=== PATIENT | male | born 1960 | race Asian ===

== ENCOUNTER 2017-04-09 07:25 | Outpatient (CLI) | payer BC ==
[2017-04-09] VITALS (15 sets, daily range): BP systolic 137–181; BP diastolic 79–100; PULSE 73–92
[~2017-04-09] VITALS: Ht 188 cm; Wt 82.0 kg
[~2017-04-09 07:25] MED LIST: FISH OIL CONC1000 MG PO; LOPRESSOR 225 MG/TAB PO; LORTAB 5/500 501 TAB PO; OXYCONTIN10 MG PO; VERAPAMIL; VERAPAMIL HCL80 MG PO; VITAMIN C500 MG PO
[2017-04-09] MEDS ORDERED: DAZIDOX10 MG PO (07:51)
[2017-04-09] MEDS ORDERED: GLUCOPHAGE1000 MG PO (07:56)
[2017-04-09] MEDS ORDERED: AMBIEN 10MG10 MG PO (07:57)
== END 2017-04-09 11:38 | disposition home or self-care (01) ==
LOC: COL.RAD 07:25
DX: R91.8 Other nonspecific abnormal finding of lung field (principal); R59.0 Localized enlarged lymph nodes; Z87.891 Personal history of nicotine dependence
CPT/HCPCS: J2250

== ENCOUNTER → 2017-09-14 | Outpatient (CLI) | payer BC ==
[~2017-09-14] MED LIST changes: +AMBIEN 10MG10 MG PO; +DAZIDOX10 MG PO; +GLUCOPHAGE1000 MG PO
== END ==
LOC: COL.RAD 08:05
DX: C34.91 Malignant neoplasm of unspecified part of right bronchus or lung (principal)

== ENCOUNTER → 2017-10-26 | Outpatient (CLI) | payer BC | LOC: COL.RAD 11:45 | DX: C34.31 Malignant neoplasm of lower lobe, right bronchus or lung (principal); C77.1 Secondary and unspecified malignant neoplasm of intrathoracic lymph nodes; C79.51 Secondary malignant neoplasm of bone ==

== ENCOUNTER 2017-11-25 09:58 | Inpatient (IN) | payer BC ==
[2017-11-25] VITALS (213 sets, daily range): BP systolic 92–110; BP diastolic 72–85; PULSE 90–112; TEMP 97–97.3; O2SAT 78–100
[~2017-11-25] VITALS: Ht 185.4 cm; Wt 80.2 kg
[2017-11-25 10:24] LABS: INR 1.8 (0.8-3.0); PROTHROMBIN TIME 20.1 SECONDS (9.7-12.8)
[2017-11-25 10:25] LABS: ALANINE AMINOTRANSFERASE 33 U/L (21-72); ALBUMIN 3.2 gm/dL (3.5-5.0); ALKALINE PHOSPHATASE 95 U/L (50-136); ANION GAP 14 mmol/L (7-16); AST,SGOT 36 U/L (15-37); BILIRUBIN,TOTAL 0.4 mg/dL (0.0-1.0); BLOOD UREA NITROGEN 20 mg/dL (9-20); CALCIUM 8.6 mg/dL (8.4-10.2); CARBON DIOXIDE 25 mmol/L (22-30); CHLORIDE 100 mmol/L (98-107); CREATININE, serum 0.71 mg/dL (0.66-1.25); GLUCOSE 212 mg/dL (74-106); LIPASE 29 U/L (23-300); POTASSIUM 4.3 mmol/L (3.4-5.0); SODIUM 140 mmol/L (137-145); TOTAL PROTEIN 6.8 gm/dL (6.4-8.2)
[2017-11-25 10:26] LABS: PARTIAL THROMBOPLASTIN TIME 35.6 SECONDS (26.0-37.0)
[2017-11-25 10:28] LABS: BASO % 0.3 % (0.0-2.0); EOS # 0.1 (0.0-0.7); EOS % 0.6 % (0-4.0); GRAN % 77.9 % (42.2-75.2); HEMOGLOBIN 10.5 g/dl (13.5-18.0); LYMPH # 1.2 (1.2-3.4); LYMPH % 11.2 % (20.0-51.0); MEAN CELL VOLUME 89 fl (80.0-100.0); MEAN CORPUSCULAR HEMOGLOBIN 28 pg (27.0-31.0); MEAN CORPUSCULAR HGB CONC 31 g/dl (33.0-37.0); MEAN PLATELET VOLUME 9.9 fl (7.4-10.4); MONO % 9.3 % (1.7-9.3); PLATELET COUNT 145 K/mm3 (130-400); RED BLOOD COUNT 3.76 M/mm3 (4.20-5.60); REDCELL DISTRIBUTION WIDTH-CV 19.8 % (11.5-14.5)
[2017-11-25 10:33] LABS: HEMATOCRIT 33.6 % (42.0-52.0)
[2017-11-25 10:39] LABS: TROPONIN-I 0.119 ng/mL (0.000-0.034)
[2017-11-25] MEDS ORDERED: FARXIGA10 PO (11:09)
[2017-11-25] MEDS ORDERED: ATIVAN 1MG T1 MG/TAB PO (11:10)
[2017-11-25] MEDS ORDERED: DOLOPHINE HCL5 MG PO (11:10)
[2017-11-25] MEDS ORDERED: MOVANTIK25 MG PO (11:10)
[2017-11-25] MEDS ORDERED: PROMETHAZINE H118 ML PO (11:10)
[2017-11-25] MEDS ORDERED: FOLIC ACID 11 MG/TA1 PO (11:11)
[2017-11-25] MEDS ORDERED: DILAUDID 4MG TAB4 MG PO (11:11)
[2017-11-25] MEDS ORDERED: EXALGO12 MG PO (11:11)
[2017-11-25] MEDS ORDERED: REMERON 15M15 MG/TA1 PO (11:12)
[2017-11-25] MEDS ORDERED: FENTANYL 50MCG TD (11:13)
== END 2017-11-25 21:20 | disposition short-term general hospital (02) | DRG 175 ==
LOC: COL.ER 09:58 → ICU 11:38
PROVIDERS: Emergency Medicine
DX: I26.92 Saddle embolus of pulmonary artery without acute cor pulmonale (principal); I21.A1 Myocardial infarction type 2; C79.51 Secondary malignant neoplasm of bone; I82.412 Acute embolism and thrombosis of left femoral vein; I82.432 Acute embolism and thrombosis of left popliteal vein; I82.442 Acute embolism and thrombosis of left tibial vein; I31.3 Pericardial effusion (noninflammatory); M48.54XA Collapsed vertebra, not elsewhere classified, thoracic region, initial encounter for fracture; B37.0 Candidal stomatitis; E11.9 Type 2 diabetes mellitus without complications; I10 Essential (primary) hypertension; F32.9 Major depressive disorder, single episode, unspecified; F41.8 Other specified anxiety disorders; G47.00 Insomnia, unspecified; D63.0 Anemia in neoplastic disease; Z92.21 Personal history of antineoplastic chemotherapy; Z87.891 Personal history of nicotine dependence; Z85.118 Personal history of other malignant neoplasm of bronchus and lung
CPT/HCPCS: 99223-AI; J1170; J1644; J1650; J1815; J3010; J7030; Q9967

== ENCOUNTER 2017-12-05 16:50 | Inpatient (IN) | payer BC ==
[2017-12-05] VITALS (124 sets, daily range): BP systolic 120–121; BP diastolic 67–83; PULSE 98–102; TEMP 97.7–97.9; O2SAT 86–99
[~2017-12-05] VITALS: Ht 185.4 cm; Wt 82.5 kg
[~2017-12-05 16:50] MED LIST changes: +ATIVAN 1MG T1 MG/TAB PO; +DILAUDID 4MG TAB4 MG PO; +DOLOPHINE HCL5 MG PO; +EXALGO12 MG PO; +FARXIGA10 PO; +FENTANYL 50MCG TD; +FOLIC ACID 11 MG/TA1 PO; -LOPRESSOR 225 MG/TAB PO; +MOVANTIK25 MG PO; +PROMETHAZINE H118 ML PO; +REMERON 15M15 MG/TA1 PO; +TOPROL XL 50MG50 MG PO
[2017-12-05] MEDS ORDERED: CALCIUM CARB500 MG PO (18:30)
[2017-12-05] MEDS ORDERED: MOVANTIK25 MG PO ×2 (18:44→20:01)
[2017-12-05] MEDS ORDERED: PROMETHAZINE V473 M2 PO ×2 (18:47→20:11)
[2017-12-05 19:10] LABS: BASO % 0.1 % (0.0-2.0); GRAN # 9.2 (1.4-6.5); GRAN % 85.5 % (42.2-75.2); HEMATOCRIT 37.3 % (42.0-52.0); HEMOGLOBIN 11.9 g/dl (13.5-18.0); LYMPH # 0.4 (1.2-3.4); LYMPH % 3.9 % (20.0-51.0); MEAN CELL VOLUME 88 fl (80.0-100.0); MEAN CORPUSCULAR HEMOGLOBIN 28 pg (27.0-31.0); MEAN CORPUSCULAR HGB CONC 32 g/dl (33.0-37.0); MEAN PLATELET VOLUME 10.7 fl (7.4-10.4); MONO % 9.2 % (1.7-9.3); PLATELET COUNT 149 K/mm3 (130-400); RED BLOOD COUNT 4.26 M/mm3 (4.20-5.60); REDCELL DISTRIBUTION WIDTH-CV 21.1 % (11.5-14.5)
[2017-12-05 19:17] LABS: ALBUMIN 2.7 gm/dL (3.5-5.0); BILIRUBIN,TOTAL 0.7 mg/dL (0.0-1.0); CREATININE, serum 0.92 mg/dL (0.66-1.25); POTASSIUM 5.2 mmol/L (3.4-5.0); TOTAL PROTEIN 6.2 gm/dL (6.4-8.2)
[2017-12-05] MEDS ORDERED: CORDARONE200 MG/TAB PO (19:55)
[2017-12-05] MEDS ORDERED: FENTANYL 100MCG TD (19:56)
[2017-12-05] MEDS ORDERED: LOVENOX 8080 MG/0.8 SQ (19:56)
[2017-12-05] MEDS ORDERED: FOLIC ACID 11 MG/TA1 PO (19:57)
[2017-12-05] MEDS ORDERED: LASIX 40MG TABL40 MG PO (19:58)
[2017-12-05] MEDS ORDERED: DILAUDID 2MG/2 MG/M1 IV (19:58)
[2017-12-05] MEDS ORDERED: LANTUS100 U/ML SQ (19:59)
[2017-12-05] MEDS ORDERED: REMERON 15M15 MG/TA1 PO (20:00)
[2017-12-05] MEDS ORDERED: LOPRESSOR 225 MG/TAB PO (20:00)
[2017-12-05] MEDS ORDERED: OXYCONTIN 80MG80 MG PO (20:02)
[2017-12-05] MEDS ORDERED: OXYCONTIN 20MG20 MG PO (20:03)
[2017-12-05] MEDS ORDERED: TYLENOL 325MG325 MG PO (20:04)
[2017-12-05] MEDS ORDERED: SENNA8.6 MG PO (20:04)
[2017-12-05] MEDS ORDERED: PROTONIX 40MG T40 MG PO (20:04)
[2017-12-05] MEDS ORDERED: RT ALBUTER2.5 MG/0.5 IH (20:05)
[2017-12-05] MEDS ORDERED: DEXTROSE 525 GM/50 M IV (20:06)
[2017-12-05] MEDS ORDERED: BENADRYL 50M50 MG/ML IV (20:07)
[2017-12-05] MEDS ORDERED: HUMALOG100 U/ML SQ (20:08)
[2017-12-05] MEDS ORDERED: DURAMORPH1 MG/ML IV (20:09)
[2017-12-05] MEDS ORDERED: ATIVAN 2MG/ML2 MG/ML IV (20:10)
[2017-12-05] MEDS ORDERED: NARCAN .4MG0.4 MG/ML IV (20:10)
[2017-12-05 20:37] LABS: ARTERIAL BLD GAS O2 SATURATION 94.2 % (92-100); ARTERIAL BLD GAS TCO2 CT 24.3; ARTERIAL BLOOD GAS BASE EXCESS 1.8 (-2-2); ARTERIAL BLOOD GAS HCO3 23.5 meq/L (22-26); ARTERIAL BLOOD GAS PCO2 28.4 mmHg (35-45); ARTERIAL BLOOD GAS PO2 72.6 mmHg (80-100); ARTERIAL BLOOD GAS pH 7.54 (7.35-7.45)
[2017-12-05 21:32] LABS: INR 2.8 (0.8-3.0)
[2017-12-06] VITALS (743 sets, daily range): BP systolic 92–116; BP diastolic 68–74; PULSE 76–98; TEMP 97–98.1; O2SAT 89–100
[2017-12-06 05:24] LABS: HEMOGLOBIN 11.4 g/dl (13.5-18.0); MEAN CELL VOLUME 88 fl (80.0-100.0); MEAN CORPUSCULAR HEMOGLOBIN 28 pg (27.0-31.0); MEAN CORPUSCULAR HGB CONC 32 g/dl (33.0-37.0); MEAN PLATELET VOLUME 11.3 fl (7.4-10.4); PLATELET COUNT 161 K/mm3 (130-400); RED BLOOD COUNT 4.06 M/mm3 (4.20-5.60); REDCELL DISTRIBUTION WIDTH-CV 21.1 % (11.5-14.5)
[2017-12-06 05:35] LABS: ALBUMIN 2.6 gm/dL (3.5-5.0); BILIRUBIN,TOTAL 0.4 mg/dL (0.0-1.0); CALCIUM 7.7 mg/dL (8.4-10.2); CREATININE, serum 0.79 mg/dL (0.66-1.25); POTASSIUM 4.4 mmol/L (3.4-5.0); TOTAL PROTEIN 6.1 gm/dL (6.4-8.2)
[2017-12-06 05:38] LABS: HEMATOCRIT 35.6 % (42.0-52.0)
[2017-12-06 05:57] LABS: ANISOCYTOSIS 3+; BAND 10 % (0-10); LYMPHOCYTE 6 % (20.0-51.0); NEUTROPHILS 80 % (42.0-75.2); PLATELET ESTIMATE NORMAL (NORMAL)
[2017-12-06 07:05] LABS: MUCOUS Present /lpf; PH 5 (5-8); SQUAMOUS EPITHELIAL None Seen /hpf; URINE APPEARANCE Clear; URINE BACTERIA None Seen /hpf; URINE BILIRUBIN Negative (NEGATIVE); URINE BLOOD Negative (NEGATIVE); URINE COLOR Yellow; URINE GLUCOSE Negative (NEGATIVE); URINE KETONE Negative (NEGATIVE); URINE LEUKOCYTE ESTERASE Negative (NEGATIVE); URINE NITRATE Negative (NEGATIVE); URINE PROTEIN(semi-quant) Negative (NEGATIVE); URINE RBC 0-2 /hpf; URINE UROBILINOGEN Negative (NEGATIVE)
[2017-12-06 08:40] LABS: COLLECTION METHOD CLEAN CATCH
[2017-12-06 11:16] LABS: INR 2.4 (0.8-3.0); PROTHROMBIN TIME 27.3 SECONDS (9.7-12.8)
[2017-12-06 21:05] LABS: INR 2.1 (0.8-3.0); PROTHROMBIN TIME 23.8 SECONDS (9.7-12.8)
[2017-12-07] VITALS (394 sets, daily range): BP systolic 94–105; BP diastolic 57–73; PULSE 66–77; TEMP 97.1–97.2; O2SAT 82–100
[2017-12-07 05:46] LABS: MEAN CELL VOLUME 87 fl (80.0-100.0); MEAN CORPUSCULAR HEMOGLOBIN 28 pg (27.0-31.0); MEAN CORPUSCULAR HGB CONC 32 g/dl (33.0-37.0); MEAN PLATELET VOLUME 10.9 fl (7.4-10.4); PLATELET COUNT 141 K/mm3 (130-400); RED BLOOD COUNT 3.64 M/mm3 (4.20-5.60)
[2017-12-07 05:54] LABS: CALCIUM 7.2 mg/dL (8.4-10.2); CREATININE, serum 0.65 mg/dL (0.66-1.25); POTASSIUM 4.1 mmol/L (3.4-5.0)
[2017-12-07 06:07] LABS: HEMATOCRIT 31.5 % (42.0-52.0)
[2017-12-07 06:26] LABS: BAND 6 % (0-10); LYMPHOCYTE 4 % (20.0-51.0); NEUTROPHILS 88 % (42.0-75.2)
[2017-12-07 06:27] LABS: ANISOCYTOSIS 3+; POLYCHROMASIA 1+
[2017-12-07 06:29] LABS: PLATELET ESTIMATE DECREASED (NORMAL)
[2017-12-07 08:04] LABS: PROTHROMBIN TIME 22.9 SECONDS (9.7-12.8)
== END 2017-12-07 10:32 | disposition short-term general hospital (02) | DRG 314 ==
LOC: MEDICAL 16:50 → ICU 20:00
PROVIDERS: Hospitalist; Internal Medicine Pulmonary Disease; Nurse Practitioner Family; Student in an Organized Health Care Education/Training Program
PROC: 02HV33Z Insertion of Infusion Device into Superior Vena Cava, Percutaneous Approach (ICD-10-PCS; principal; 2017-12-06)
DX: I31.3 Pericardial effusion (noninflammatory) (principal); I26.02 Saddle embolus of pulmonary artery with acute cor pulmonale; E43 Unspecified severe protein-calorie malnutrition; C34.31 Malignant neoplasm of lower lobe, right bronchus or lung; C79.51 Secondary malignant neoplasm of bone; J90 Pleural effusion, not elsewhere classified; I82.412 Acute embolism and thrombosis of left femoral vein; I82.432 Acute embolism and thrombosis of left popliteal vein; I82.442 Acute embolism and thrombosis of left tibial vein; J98.11 Atelectasis; E87.3 Alkalosis; I48.91 Unspecified atrial fibrillation; I10 Essential (primary) hypertension; E11.9 Type 2 diabetes mellitus without complications; G89.3 Neoplasm related pain (acute) (chronic); E87.5 Hyperkalemia; M84.58XD Pathological fracture in neoplastic disease, other specified site, subsequent encounter for fracture with routine healing
CPT/HCPCS: 99223-AI; 99239; J1170; J1650; J1815; J1885; J1940; J2060; J2270; J2920; J3010; J3430; J7030; Q9967